=== PATIENT | male | born 1985 | race Caucasian/White ===

== ENCOUNTER 2018-04-23 08:20 | Emergency (ER) | payer SELFPAY ==
[~2018-04-23] VITALS: Ht 170.2 cm; Wt 70.0 kg
[2018-04-23] MEDS ORDERED: SODIUM CHLORIDE 0.9% 1,000 ML IV ONE (09:06)
[2018-04-23] MEDS ORDERED: LORAZEPAM 2MG/ML CPJ IV STA (09:06)
[2018-04-23] MEDS ORDERED: CHLORDIAZEPOXIDE 25MG CAPSULE PO ONE (09:15)
[2018-04-23 10:01] LABS: BASOPHILS % 0.5 % (0.0-2.0); EOSINOPHILS % 0.3 % (0.0-5.0); HEMATOCRIT. 47.5 % (42.0-52.0); HEMOGLOBIN. 16.3 g/dL (14.0-18.0); LYMPHOCYTES % 7.6 % (20.0-50.0); MEAN CORPUSCULAR VOLUME 90.5 fL (80.0-94.0); MEAN PLATELET VOLUME 9.1 fl (7.4-10.4); MONOCYTES % 8.2 % (2.0-8.0); NEUTROPHILS % 83.4 % (40.0-76.0); PLATELET 166 x1000/uL (130-400); RED BLOOD CELL COUNT 5.25 mill/uL (4.7-6.1); RED CELL DISTRIBUTION WIDTH 15.3 % (11.6-14.6)
[2018-04-23 10:02] LABS: CHLORIDE 98 mEq/L (98-107)
[2018-04-23 10:03] LABS: CLARITY URINE CLEAR (CLEAR); COLOR URINE YELLOW (YELLOW); KETONES URINE 3+ (NEGATIVE); LEUKOCYTE ESTERASE URINE NEGATIVE (NEGATIVE); NITRITE URINE NEGATIVE (NEGATIVE); OCCULT BLOOD URINE 1+ (NEGATIVE); PH URINE 5.5 (4.5-8.0); PROTEIN URINE 2+ (NEGATIVE)
[2018-04-23 10:06] LABS: ETHANOL BLOOD < 10 mg/dL
[2018-04-23 10:18] LABS: *AMPHETAMINES SCREEN URINE NEGATIVE (NEGATIVE); *BARBITURATES SCREEN URINE NEGATIVE (NEGATIVE); *BENZODIAZEPINES SCREEN URINE NEGATIVE (NEGATIVE); *COCAINE SCREEN URINE PRESUMTIVE POSITIVE (NEGATIVE); CANNABINOID URINE SCREEN NEGATIVE (NEGATIVE); PHENCYCLIDINE URINE SCREEN NEGATIVE (NEGATIVE)
[2018-04-23 10:19] LABS: METHADONE URINE SCREEN NEGATIVE (NEGATIVE); OPIATES URINE SCREEN NEGATIVE (NEGATIVE)
[2018-04-23 11:34] VITALS: BP 140/95
== END 2018-04-23 12:04 | disposition home or self-care (01) ==
LOC: ER 08:22
DX: R56.9 Unspecified convulsions (principal); F14.10 Cocaine abuse, uncomplicated; F10.239 Alcohol dependence with withdrawal, unspecified; Y90.0 Blood alcohol level of less than 20 mg/100 ml
CPT/HCPCS: 36415; 80053; 80305; 80320; 81003; 85025; 93005; 96374; 99284; J2060; J7030; G0480

== ENCOUNTER 2018-11-15 14:29 | Emergency (ER) | payer SELFPAY ==
[~2018-11-15] VITALS: Ht 172.7 cm; Wt 77.0 kg
[2018-11-15] MEDS ORDERED: LORAZEPAM 2MG/ML CPJ IV STA (15:19)
[2018-11-15] MEDS ORDERED: FOLIC ACID 1 MG, THIAMINE HCL 100 MG, MVI, ADULT NO.1 10 ML in DEXTROSE 5% WATER 1,000 ML IV ONE ×4 (15:30)
[2018-11-15] MEDS ORDERED: CHLORDIAZEPOXIDE 25MG CAPSULE PO ONE (15:30)
[2018-11-15 15:45] LABS: BASOPHILS % 0.5 % (0.0-2.0); HEMATOCRIT. 46.9 % (42.0-52.0); HEMOGLOBIN. 15.8 g/dL (14.0-18.0); LYMPHOCYTES % 11.8 % (20.0-50.0); MEAN CORPUSCULAR HEMOGLOBIN 31.8 pg (28.0-32.0); MEAN CORPUSCULAR VOLUME 94.5 fL (80.0-94.0); MEAN PLATELET VOLUME 9.7 fl (7.4-10.4); MONOCYTES % 14.3 % (2.0-8.0); NEUTROPHILS % 73.4 % (40.0-76.0); PLATELET 175 x1000/uL (130-400); RED BLOOD CELL COUNT 4.97 mill/uL (4.7-6.1); RED CELL DISTRIBUTION WIDTH 14.2 % (11.6-14.6)
[2018-11-15] MEDS ORDERED: ONDANSETRON HCL 4MG/2ML INJ IV ONE (15:45)
[2018-11-15 15:48] LABS: CHLORIDE 100 mEq/L (98-107)
[2018-11-15 15:53] LABS: ETHANOL BLOOD < 10 mg/dL
[2018-11-15 16:30] LABS: CLARITY URINE CLEAR (CLEAR); COLOR URINE DARK YELLOW (YELLOW); KETONES URINE 1+ (NEGATIVE); LEUKOCYTE ESTERASE URINE NEGATIVE (NEGATIVE); NITRITE URINE NEGATIVE (NEGATIVE); OCCULT BLOOD URINE NEGATIVE (NEGATIVE); PH URINE 8.5 (4.5-8.0); PROTEIN URINE 3+ (NEGATIVE); SPECIFIC GRAVITY URINE 1.022 (1.005-1.030)
[2018-11-15 16:42] LABS: *AMPHETAMINES SCREEN URINE NEGATIVE (NEGATIVE); *BARBITURATES SCREEN URINE NEGATIVE (NEGATIVE); *BENZODIAZEPINES SCREEN URINE NEGATIVE (NEGATIVE); *COCAINE SCREEN URINE NEGATIVE (NEGATIVE); CANNABINOID URINE SCREEN NEGATIVE (NEGATIVE); METHADONE URINE SCREEN NEGATIVE (NEGATIVE); OPIATES URINE SCREEN PRESUMTIVE POSITIVE (NEGATIVE)
[2018-11-15 16:44] LABS: PHENCYCLIDINE URINE SCREEN NEGATIVE (NEGATIVE)
[2018-11-15] MEDS ORDERED: POTASSIUM CHLORIDE 20MEQ TABLET SR PO ONE (18:15)
[2018-11-15 18:42] VITALS: BP 134/85
== END 2018-11-15 19:00 | disposition home or self-care (01) ==
LOC: ER 14:29
DX: F10.239 Alcohol dependence with withdrawal, unspecified (principal); Y90.9 Presence of alcohol in blood, level not specified
CPT/HCPCS: 36415; 80053; 80305; 80307; 80320; 80329; 81003; 85025; 96365; 96366; 96375; 99283; J2060; J2405; J3411; J3490; J7070; G0480

== ENCOUNTER 2020-06-24 16:29 | Inpatient (IN) | payer MEDICAID, OTHER ==
[~2020-06-24] VITALS: Ht 172.7 cm; Wt 79.4 kg
[2020-06-24] MEDS ORDERED: PHENOBARBITAL SODIUM 130MG/ML 1ML IV STA (17:07)
[2020-06-24] MEDS ORDERED: LORAZEPAM 2MG/ML CPJ IV ONE (17:15)
[2020-06-24 17:23] LABS: BASOPHILS % 0.5 % (0.0-2.0); EOSINOPHILS % 0.5 % (0.0-5.0); HEMATOCRIT. 45.7 % (42.0-52.0); HEMOGLOBIN. 16.1 g/dL (14.0-18.0); LYMPHOCYTES % 16.8 % (20.0-50.0); MEAN CORPUSCULAR HEMOGLOBIN 32.1 pg (28.0-32.0); MEAN CORPUSCULAR VOLUME 91.4 fL (80.0-94.0); MEAN PLATELET VOLUME 8.5 fl (7.4-10.4); MONOCYTES % 8.6 % (2.0-8.0); NEUTROPHILS % 73.6 % (40.0-76.0); PLATELET 252 x1000/uL (130-400); RED CELL DISTRIBUTION WIDTH 13.4 % (11.6-14.6)
[2020-06-24 17:30] LABS: CHLORIDE 101 mEq/L (98-107)
[2020-06-24] MEDS ORDERED: PHENOBARBITAL INJ 260 MG in SODIUM CHLORIDE 0.9% 100 ML IV ONE ×2 (17:30→19:45)
[2020-06-25 04:40] VITALS: BP 168/113
[2020-06-25] MEDS ORDERED: ONDANSETRON HCL 4MG/2ML INJ IV PRN (06:00)
[2020-06-25] MEDS ORDERED: CLONIDINE 0.1MG TABLET PO PRN (06:00)
[2020-06-25] MEDS ORDERED: HYDROCODONE/ACETAMINOPHEN 5/325MG TABLET PO PRN (06:00)
[2020-06-25] MEDS ORDERED: LORAZEPAM 2MG/ML CPJ IV PRN (06:00)
[2020-06-25] MEDS: CHLORDIAZEPOXIDE 25MG CAPSULE PO SCH ×3 (06:35→21:23)
[2020-06-25] MEDS ORDERED: FOLIC ACID 1 MG, THIAMINE HCL 100 MG, MVI, ADULT NO.1 10 ML in DEXTROSE 5% WATER 1,000 ML IV SCH (07:00)
[2020-06-25] MEDS ORDERED: PANTOPRAZOLE 40MG DR TABLET PO SCH (07:20)
[2020-06-25 08:00] VITALS: BP 124/66
[2020-06-25] MEDS: METOPROLOL TARTRATE 50MG TABLET PO SCH ×2 (08:15→21:23)
[2020-06-25 10:05] LABS: BASOPHILS % 0.6 % (0.0-2.0); EOSINOPHILS % 0.8 % (0.0-5.0); HEMOGLOBIN. 15.3 g/dL (14.0-18.0); LYMPHOCYTES % 16.9 % (20.0-50.0); MEAN CORPUSCULAR HEMOGLOBIN 32.4 pg (28.0-32.0); MEAN CORPUSCULAR VOLUME 93.2 fL (80.0-94.0); MONOCYTES % 12.2 % (2.0-8.0); NEUTROPHILS % 69.5 % (40.0-76.0); PLATELET 205 x1000/uL (130-400); RED BLOOD CELL COUNT 4.73 mill/uL (4.7-6.1); RED CELL DISTRIBUTION WIDTH 13.6 % (11.6-14.6)
[2020-06-25 10:13] LABS: CHLORIDE 98 mEq/L (98-107)
[2020-06-25] MEDS ORDERED: POTASSIUM CHLORIDE 20MEQ TABLET SR PO NR (11:30)
[2020-06-25 12:00] VITALS: BP 121/81
[2020-06-25] MEDS ORDERED: PNEUMOCOCCAL 23-VAL P-SAC VAC 0.5 ML IM ONE (12:00)
[2020-06-25 16:00] VITALS: BP 124/68
[2020-06-25 20:00] VITALS: BP 135/95
[2020-06-25 22:51] LABS: CLARITY URINE CLEAR (CLEAR); COLOR URINE ORANGE (YELLOW); KETONES URINE TRACE (NEGATIVE); LEUKOCYTE ESTERASE URINE TRACE (NEGATIVE); NITRITE URINE NEGATIVE (NEGATIVE); OCCULT BLOOD URINE NEGATIVE (NEGATIVE); PH URINE 6.5 (4.5-8.0); PROTEIN URINE TRACE (NEGATIVE); SPECIFIC GRAVITY URINE 1.024 (1.005-1.030)
[2020-06-25 23:03] LABS: *AMPHETAMINES SCREEN URINE NEGATIVE (NEGATIVE); *BARBITURATES SCREEN URINE PRESUMTIVE POSITIVE (NEGATIVE); *BENZODIAZEPINES SCREEN URINE PRESUMTIVE POSITIVE (NEGATIVE); *COCAINE SCREEN URINE NEGATIVE (NEGATIVE); METHADONE URINE SCREEN NEGATIVE (NEGATIVE); OPIATES URINE SCREEN PRESUMTIVE POSITIVE (NEGATIVE)
[2020-06-25 23:04] LABS: CANNABINOID URINE SCREEN NEGATIVE (NEGATIVE); PHENCYCLIDINE URINE SCREEN NEGATIVE (NEGATIVE)
[2020-06-26] MEDS ORDERED: DEXAMETHASONE 4MG/ML 1ML VIAL IV SCH
== END 2020-06-25 23:05 | disposition left against medical advice (07) | DRG 199 ==
LOC: ER 16:29 → 6WST 06-25 00:46 → EDBEDREQ 06-25 00:50 → ENRESERV 06-25 03:12
PROVIDERS: ADMIT Internal Medicine; ATTEND Internal Medicine
DX: I16.0 Hypertensive urgency (principal); R56.9 Unspecified convulsions; E87.1 Hypo-osmolality and hyponatremia; F10.239 Alcohol dependence with withdrawal, unspecified; M48.061 Spinal stenosis, lumbar region without neurogenic claudication; Z53.29 Procedure and treatment not carried out because of patient's decision for other reasons; F17.210 Nicotine dependence, cigarettes, uncomplicated; R00.0 Tachycardia, unspecified; R26.2 Difficulty in walking, not elsewhere classified; R74.01 Elevation of levels of liver transaminase levels; Z71.6 Tobacco abuse counseling
CPT/HCPCS: 36415; 71045; 72148; 73502; 80048; 80053; 80076; 80305; 80320; 81003; 83735; 84100; 85025; 90732; 93005; 97162; 99285; C1893; J2060; J2560; J3411; J3490; J7050; J7070; G0480

== ENCOUNTER 2020-07-06 14:13 | Emergency (ER) | payer OTHER ==
[~2020-07-06] VITALS: Ht 172.7 cm; Wt 88.0 kg
[2020-07-06] MEDS ORDERED: LIDOCAINE 5% PATCH TOP SCH (18:45)
[2020-07-06] MEDS ORDERED: KETOROLAC 60MG/2ML VIAL IM ONE (18:45)
[2020-07-06] MEDS ORDERED: ACETAMINOPHEN 325MG TABLET PO ONE (18:45)
[2020-07-06] MEDS ORDERED: DEXAMETHASONE 10 MG/ML VIAL IV NR (19:00)
[2020-07-06] MEDS ORDERED: LIDO700A15 TP (21:12)
[2020-07-06] MEDS ORDERED: IBUP-2029 MT (21:12)
[2020-07-06] MEDS ORDERED: BACL-141 MT (21:12)
[2020-07-06] MEDS ORDERED: T3 PO (21:12)
[2020-07-06 21:14] VITALS: BP 117/65
[2020-07-06 21:22] LABS: *AMPHETAMINES SCREEN URINE NEGATIVE (NEGATIVE); *BARBITURATES SCREEN URINE PRESUMTIVE POSITIVE (NEGATIVE); *BENZODIAZEPINES SCREEN URINE PRESUMTIVE POSITIVE (NEGATIVE); *COCAINE SCREEN URINE NEGATIVE (NEGATIVE); METHADONE URINE SCREEN NEGATIVE (NEGATIVE); OPIATES URINE SCREEN NEGATIVE (NEGATIVE)
[2020-07-06 21:23] LABS: CANNABINOID URINE SCREEN NEGATIVE (NEGATIVE); PHENCYCLIDINE URINE SCREEN NEGATIVE (NEGATIVE)
== END 2020-07-06 21:21 | disposition home or self-care (01) ==
LOC: ER 14:13
DX: M51.27 Other intervertebral disc displacement, lumbosacral region (principal); F17.200 Nicotine dependence, unspecified, uncomplicated; Z79.899 Other long term (current) drug therapy; Z86.59 Personal history of other mental and behavioral disorders; Z98.890 Other specified postprocedural states
CPT/HCPCS: 80305; 96372; 96374; 99283; 99406; J1100; J1885; Z7610

== ENCOUNTER 2024-05-08 23:39 | Inpatient (IN) | payer MEDICAID, OTHER ==
[~2024-05-08] VITALS: Ht 172.7 cm; Wt 77.1 kg
[~2024-05-08 23:39] MED LIST: BACL-141 MT; IBUP-2029 MT; LIDO700A15 TP; T3 PO
[2024-05-09] MEDS: LORAZEPAM 2MG/ML INJ IV ONE (00:27)
[2024-05-09 00:42] LABS: BASOPHILS % 0.6 % (0.0-2.0); EOSINOPHILS % 0.1 % (0.0-5.0); HEMATOCRIT. 44.9 % (42.0-52.0); LYMPHOCYTES % 9.9 % (20.0-50.0); MEAN CORPUSCULAR HEMOGLOBIN 30.5 pg (28.0-32.0); MEAN CORPUSCULAR HGB CONC 33.4 g/dL (31.0-37.0); MEAN CORPUSCULAR VOLUME 91.2 fL (80.0-94.0); MEAN PLATELET VOLUME 9.2 fl (7.4-10.4); NEUTROPHILS % 82.4 % (40.0-76.0); PLATELET 175 x1000/uL (130-400); RED BLOOD CELL COUNT 4.93 mill/uL (4.7-6.1); RED CELL DISTRIBUTION WIDTH 14.6 % (11.6-14.6); WHITE BLOOD COUNT 10.1 x1000/uL (4.5-11.0)
[2024-05-09 00:51] LABS: PROTHROMBIN TIME 10.5 sec (9.6-11.0)
[2024-05-09] MEDS: FOLIC ACID 1 MG, THIAMINE HCL 100 MG, MVI, ADULT NO.1 10 ML in DEXTROSE 5% WATER 1,000 ML IV ONE (01:01)
[2024-05-09 01:10] LABS: CARBON DIOXIDE 20 mEq/L (21-32); CHLORIDE 99 mEq/L (98-107); POTASSIUM 3.9 mEq/L (3.5-5.1); SODIUM 136 mEq/L (136-145)
[2024-05-09 01:11] LABS: CALCIUM 9.8 mg/dL (8.7-10.4)
[2024-05-09 01:16] LABS: CREATININE 0.7 mg/dL (0.6-1.3); GLUCOSE 161 mg/dL (70-105); UREA NITROGEN BLOOD 6 mg/dL (9-23)
[2024-05-09 01:28] LABS: ETHANOL BLOOD < 10 mg/dL (<10)
[2024-05-09 01:35] LABS: LACTIC ACID 5.6 mmol/L (0.4-2.0)
[2024-05-09 04:07] VITALS: BP 156/95; PULSE 102; RESP 18; TEMP 36.8; O2SAT 97
[2024-05-09 04:22] VITALS: BP 156/95; PULSE 102; RESP 18; TEMP 36.9
[2024-05-09 05:09] LABS: CLARITY URINE CLEAR (CLEAR); COLOR URINE DARK YELLOW (YELLOW); GLUCOSE URINE NEGATIVE (NEGATIVE); KETONES URINE 3+ (NEGATIVE); LEUKOCYTE ESTERASE URINE 1+ (NEGATIVE); NITRITE URINE NEGATIVE (NEGATIVE); OCCULT BLOOD URINE NEGATIVE (NEGATIVE); PH URINE 8.5 (4.5-8.0); PROTEIN URINE 3+ (NEGATIVE); SPECIFIC GRAVITY URINE 1.026 (1.005-1.030)
[2024-05-09 06:42] LABS: SQUAMOUS EPITHELIAL CELL URINE 1+ /lpf (RARE/1+)
[2024-05-09 06:43] LABS: BACTERIA URINE TRACE; RBC URINE 0-2 /hpf (0-2); WBC URINE 15-25 /hpf (0-2)
[2024-05-09 07:05] LABS: *AMPHETAMINES SCREEN URINE NEGATIVE (NEGATIVE)
[2024-05-09 07:06] LABS: *BARBITURATES SCREEN URINE NEGATIVE (NEGATIVE); *BENZODIAZEPINES SCREEN URINE NEGATIVE (NEGATIVE); *COCAINE SCREEN URINE NEGATIVE (NEGATIVE); CANNABINOID URINE SCREEN PRESUMPTIVE POSITIVE (NEGATIVE); ECSTASY MDMA SCREEN URINE NEGATIVE (NEGATIVE); METHADONE URINE SCREEN NEGATIVE (NEGATIVE); OPIATES URINE SCREEN NEGATIVE (NEGATIVE); PHENCYCLIDINE URINE SCREEN NEGATIVE (NEGATIVE)
[2024-05-09 08:00] VITALS: BP 152/82; PULSE 88; RESP 18; TEMP 37; O2SAT 98
[2024-05-09 12:00] VITALS: BP 149/85; PULSE 86; RESP 20; TEMP 36.5; O2SAT 99
[2024-05-09] MEDS ORDERED: DOCUSATE SODIUM 100MG CAPSULE PO PRN (13:15)
[2024-05-09] MEDS ORDERED: ACETAMINOPHEN 325MG TABLET PO PRN ×2 (13:15)
[2024-05-09] MEDS ORDERED: DEXTROSE 50% WATER 50ML SYRINGE IV PRN (13:15)
[2024-05-09] MEDS ORDERED: IPRATROPIUM/ALBUTEROL 0.5-3(2.5)MG/3ML NEB HHN PRN (13:15)
[2024-05-09] MEDS: CHLORDIAZEPOXIDE 25MG CAPSULE PO SCH (14:37)
[2024-05-09] MEDS: HYDRALAZINE HCL 25MG TABLET PO SCH (14:37)
[2024-05-09] MEDS: ONDANSETRON HCL 4MG/2ML INJ IV PRN (14:37)
[2024-05-09] MEDS: CEFTRIAXONE 1GM/50ML 50 ML IV SCH (14:38)
[2024-05-09 16:00] VITALS: BP 127/82; PULSE 85; RESP 19; TEMP 36.3; O2SAT 100
[2024-05-09] MEDS: FOLIC ACID 1 MG, THIAMINE HCL 100 MG, MVI, ADULT NO.1 10 ML in DEXTROSE 5% WATER 1,000 ML IV NR (16:25)
[2024-05-09] MEDS: BLOOD SUGAR DIAGNOSTIC STRIP TEST SCH (16:45)
[2024-05-09] MEDS: INSULIN LISPRO 100 UNITS/ML SUBCUT SCH (17:15)
[2024-05-09 17:16] LABS: CREATINE KINASE 307 IU/L (46-171); CREATINE KINASE MB FRACTION 1.8 ng/mL (0.5-3.6)
[2024-05-09 17:17] LABS: TROPONIN I HIGH SENSITIVITY < 4 ng/L (3.0-53)
[2024-05-09 17:20] LABS: THYROID STIMULATING HORMONE 2.03 uIU/mL (0.55-4.78)
[2024-05-09 17:21] LABS: T4 FREE 1.74 ng/dL (0.89-1.76)
[2024-05-09 20:00] VITALS: BP 130/79; PULSE 84; RESP 18; TEMP 36.3; O2SAT 100
[2024-05-10] VITALS (7 sets, daily range): BP systolic 132–155; BP diastolic 91–106; PULSE 96–114; RESP 16–20; TEMP 36.2–37.2; O2SAT 98–100
[2024-05-10 08:12] LABS: BASOPHILS % 0.4 % (0.0-2.0); EOSINOPHILS % 1.5 % (0.0-5.0); HEMATOCRIT. 44.5 % (42.0-52.0); HEMOGLOBIN. 14.9 g/dL (14.0-18.0); LYMPHOCYTES % 22.3 % (20.0-50.0); MEAN CORPUSCULAR HEMOGLOBIN 29.9 pg (28.0-32.0); MEAN CORPUSCULAR HGB CONC 33.5 g/dL (31.0-37.0); MEAN CORPUSCULAR VOLUME 89.2 fL (80.0-94.0); MEAN PLATELET VOLUME 9.8 fl (7.4-10.4); MONOCYTES % 9.9 % (2.0-8.0); NEUTROPHILS % 65.9 % (40.0-76.0); PLATELET 151 x1000/uL (130-400); RED BLOOD CELL COUNT 4.99 mill/uL (4.7-6.1); RED CELL DISTRIBUTION WIDTH 14.5 % (11.6-14.6); WHITE BLOOD COUNT 9.1 x1000/uL (4.5-11.0)
[2024-05-10 08:22] LABS: CHLORIDE 97 mEq/L (98-107); POTASSIUM 3.2 mEq/L (3.5-5.1); SODIUM 133 mEq/L (136-145)
[2024-05-10 08:23] LABS: CARBON DIOXIDE 27 mEq/L (21-32)
[2024-05-10 08:24] LABS: CALCIUM 9.4 mg/dL (8.7-10.4)
[2024-05-10 08:26] LABS: PROTHROMBIN TIME 10.9 sec (9.6-11.0)
[2024-05-10 08:28] LABS: UREA NITROGEN BLOOD 7 mg/dL (9-23)
[2024-05-10 08:29] LABS: CREATININE 0.7 mg/dL (0.6-1.3); GLUCOSE 88 mg/dL (70-105)
[2024-05-10 08:30] LABS: ALBUMIN 4.1 g/dL (3.2-4.8)
[2024-05-10 08:31] LABS: ALANINE AMINOTRANSFERASE 71 IU/L (10-49); ASPARTATE AMINOTRANSFERASE 94 IU/L (<34); BILIRUBIN DIRECT 0.6 mg/dL (<=3.0); PHOSPHORUS 2.7 mg/dL (2.5-4.9)
[2024-05-10 08:32] LABS: BILIRUBIN TOTAL 1.8 mg/dL (0.1-1.0); PROTEIN TOTAL 7.9 g/dL (6.0-8.3)
[2024-05-10] MEDS: THIAMINE HCL 100MG TABLET PO SCH (09:33)
[2024-05-10] MEDS: FOLIC ACID 1MG TABLET PO SCH (09:33)
[2024-05-10] MEDS: MULTIVITAMINS,THER W-MINERALS TABLET PO SCH (09:34)
[2024-05-10] MEDS: POTASSIUM CHLORIDE 20MEQ TABLET SR PO NR (09:45)
[2024-05-10] MEDS: DILTIAZEM HCL 30MG TABLET PO SCH (14:34)
[2024-05-10] MEDS: LEVETIRACETAM 500MG PREMIX 100 ML IV SCH (20:42)
[2024-05-10] MEDS: LORAZEPAM 2MG/ML INJ IV PRN (20:48)
[2024-05-10] MEDS: HALOPERIDOL LACTATE 5MG/ML VIAL IM PRN (23:45)
[2024-05-11] VITALS: BP 148/99; TEMP 36.8; O2SAT 98
[2024-05-11] MEDS: LORAZEPAM 2MG/ML INJ IV PRN (02:55)
[2024-05-11 04:00] VITALS: BP 115/89; PULSE 127; RESP 20; TEMP 35.7; O2SAT 96
[2024-05-11 08:00] VITALS: BP 159/122; PULSE 119; RESP 18; TEMP 36.1; O2SAT 98
[2024-05-11] MEDS: CLONIDINE 0.1MG TABLET PO PRN (08:38)
[2024-05-11 12:15] VITALS: BP 130/100; PULSE 104; RESP 18; TEMP 36.2; O2SAT 99
[2024-05-11 16:27] VITALS: BP 104/70; PULSE 80; RESP 18; TEMP 37.4; O2SAT 97
[2024-05-11] MEDS: SODIUM CHLORIDE 0.9% 1,000 ML IV SCH (16:47)
[2024-05-11 18:15] LABS: POTASSIUM 3.4 mEq/L (3.5-5.1)
[2024-05-11 18:23] LABS: PHOSPHORUS 4.3 mg/dL (2.5-4.9)
[2024-05-11 20:00] VITALS: BP 100/61; PULSE 89; RESP 18; TEMP 36.6; O2SAT 97
[2024-05-12] VITALS: BP 102/62; PULSE 79; RESP 18; TEMP 36.7; O2SAT 98
[2024-05-12 04:00] VITALS: BP 94/57; PULSE 92; RESP 18; TEMP 36.9; O2SAT 100
[2024-05-12 06:26] LABS: CHLORIDE 104 mEq/L (98-107); POTASSIUM 3.1 mEq/L (3.5-5.1); SODIUM 138 mEq/L (136-145)
[2024-05-12 06:28] LABS: CARBON DIOXIDE 23 mEq/L (21-32)
[2024-05-12 06:29] LABS: CALCIUM 8.9 mg/dL (8.7-10.4)
[2024-05-12 06:34] LABS: CREATININE 0.7 mg/dL (0.6-1.3); GLUCOSE 90 mg/dL (70-105); UREA NITROGEN BLOOD 13 mg/dL (9-23)
[2024-05-12 06:35] LABS: ALANINE AMINOTRANSFERASE 86 IU/L (10-49); ALBUMIN 3.7 g/dL (3.2-4.8); ASPARTATE AMINOTRANSFERASE 97 IU/L (<34)
[2024-05-12 06:36] LABS: BILIRUBIN TOTAL 0.9 mg/dL (0.1-1.0); CREATINE KINASE 567 IU/L (46-171); PHOSPHORUS 4.4 mg/dL (2.5-4.9); PROTEIN TOTAL 6.8 g/dL (6.0-8.3)
[2024-05-12 06:57] LABS: BASOPHILS % 0.7 % (0.0-2.0); DIFFERENTIAL COMMENT 0; EOSINOPHILS % 3.5 % (0.0-5.0); HEMATOCRIT. 38.8 % (42.0-52.0); LYMPHOCYTES % 24.4 % (20.0-50.0); MEAN CORPUSCULAR HEMOGLOBIN 30.1 pg (28.0-32.0); MEAN CORPUSCULAR HGB CONC 33.5 g/dL (31.0-37.0); MEAN CORPUSCULAR VOLUME 90.1 fL (80.0-94.0); MEAN PLATELET VOLUME 9.9 fl (7.4-10.4); MONOCYTES % 14.4 % (2.0-8.0); PLATELET 147 x1000/uL (130-400); RED BLOOD CELL COUNT 4.31 mill/uL (4.7-6.1); RED CELL DISTRIBUTION WIDTH 14.6 % (11.6-14.6); WHITE BLOOD COUNT 8.2 x1000/uL (4.5-11.0)
[2024-05-12 08:00] VITALS: BP 129/79; PULSE 91; RESP 20; TEMP 36.7; O2SAT 100
[2024-05-12] MEDS ORDERED: CHLO25CA11 MT (12:16)
[2024-05-12] MEDS ORDERED: FOLI-43 PO (12:16)
[2024-05-12] MEDS ORDERED: MULT-622 MT (12:16)
[2024-05-12] MEDS ORDERED: THIA100T72 PO (12:16)
[2024-05-12] MEDS ORDERED: KEPP500 MT (12:16)
[2024-05-12] MEDS: POTASSIUM CHLORIDE 20MEQ TABLET SR PO NR (12:22)
[2024-05-12 15:56] VITALS: BP 117/77; PULSE 93; TEMP 98; O2SAT 98
[2024-05-12 16:00] VITALS: BP 117/77; PULSE 93; RESP 18; TEMP 36.7; O2SAT 100
== END 2024-05-12 16:40 | disposition home or self-care (01) | DRG 53 ==
LOC: ER 23:39 → 5WST 05-09 02:14 → EDBEDREQ 05-09 02:25 → EDBEDREQTM 05-09 02:25 → 7EST 05-10 13:45 → 7WST 05-11 03:49
PROVIDERS: ADMIT Internal Medicine; ATTEND Internal Medicine
DX: G40.89 Other seizures (principal); E87.8 Other disorders of electrolyte and fluid balance, not elsewhere classified; E78.5 Hyperlipidemia, unspecified; E87.6 Hypokalemia; F10.239 Alcohol dependence with withdrawal, unspecified; F10.229 Alcohol dependence with intoxication, unspecified; N39.0 Urinary tract infection, site not specified; I10 Essential (primary) hypertension; F17.210 Nicotine dependence, cigarettes, uncomplicated; R00.0 Tachycardia, unspecified; F12.10 Cannabis abuse, uncomplicated; Y90.9 Presence of alcohol in blood, level not specified; Z82.49 Family history of ischemic heart disease and other diseases of the circulatory system; Z78.1 Physical restraint status
CPT/HCPCS: 36415; 70551; 71045; 80048; 80053; 80076; 80305; 80320; 81003; 82550; 82553; 82962; 83036; 83605; 83735; 83880; 84100; 84132; 84145; 84439; 84443; 84480; 84484; 85025; 93005; 99285; A4606; C1893; J0696; J1630; J1953; J2060; J2405; J3411; J3490; J7030; J7070; G0480